=== PATIENT | female | born 1985 | race American Indian/Alaskan Native ===

== ENCOUNTER 2018-09-09 02:18 | Emergency (ER) | payer MEDICAID, OTHER ==
[2018-09-09 02:26] VITALS: BP 155/108
[2018-09-09] MEDS ORDERED: IBUPROFEN PO ONE (03:03)
--- NOTE | 2018-09-09 03:07 | Emergency Department Report ---
ED ENT HPI - General Chief complaint: Dental/Oral Stated complaint: TOOTHACHE Time Seen by Provider: 09/09/18 02:47 Source: patient Mode of arrival: Ambulatory Limitations: No Limitations - History of Present Illness Initial comments: 33-year-old -[place] female comes in complaining of a tooth pain that she's had for over a month. Patient states that she's been on amoxicillin in, and all which she reports is not helping with her pain. Patient denied any fever chills or nausea no vomiting. Patient is aware that she has a bad tooth in her mouth. Patient reports that she's had decreased and eating and drinking because of the tooth pain. Patient reports her next dental appointment is not until November. MD complaint: tooth pain -: month(s) (1) Location: tooth # (31) Severity scale (0 -10): 9 Improves with: none Worsens with: none Context- Dental: poor dental care Associated Symptoms: gum swelling, toothache. denies: fever, cough, pain with swallowing, sore throat - Related Data Home Medications Medication Instructions Recorded Confirmed Last Taken Multivitamins Tablet 1 tab PO QDAY 03/27/15 10/10/15 10/09/15 Ferrous Sulfate [Feosol 325 MG tab] 325 mg PO BID 08/13/15 10/10/15 08/11/15 Levothyroxine [Synthroid] 25 mcg PO QDAY 08/13/15 10/10/15 10/05/15 Acyclovir [Zovirax Tab] 400 mg PO DAILY 10/10/15 10/10/15 10/09/15 Valacyclovir HCl [valACYclovir] See Protocol PO QDAY 10/10/15 10/10/15 10/09/15 Previous Rx's Medication Instructions Recorded Last Taken Type Clindamycin [Clindamycin CAP] 300 mg PO Q8H #30 cap 09/09/18 Unknown Rx HYDROcodone/ACETAMINOPHEN [[place] 1 each PO Q6H PRN #12 tablet 09/09/18 Unknown Rx 7.5-325 Tablet] Ibuprofen [Motrin 600 MG tab] 600 mg PO Q8H PRN #30 tablet 09/09/18 Unknown Rx Allergies Allergy/AdvReac Type Severity Reaction Status Date / Time No Known Allergies Allergy Verified 03/03/15 20:21 ED Dental HPI - General Chief complaint: Dental/Oral Stated complaint: TOOTHACHE Time Seen by Provider: 09/09/18 02:47 Source: patient Mode of arrival: Ambulatory Limitations: No Limitations - Related Data Home Medications Medication Instructions Recorded Confirmed Last Taken Multivitamins Tablet 1 tab PO QDAY 03/27/15 10/10/15 10/09/15 Ferrous Sulfate [Feosol 325 MG tab] 325 mg PO BID 08/13/15 10/10/15 08/11/15 Levothyroxine [Synthroid] 25 mcg PO QDAY 08/13/15 10/10/15 10/05/15 Acyclovir [Zovirax Tab] 400 mg PO DAILY 10/10/15 10/10/15 10/09/15 Valacyclovir HCl [valACYclovir] See Protocol PO QDAY 10/10/15 10/10/15 10/09/15 Previous Rx's Medication Instructions Recorded Last Taken Type Clindamycin [Clindamycin CAP] 300 mg PO Q8H #30 cap 09/09/18 Unknown Rx HYDROcodone/ACETAMINOPHEN [[place] 1 each PO Q6H PRN #12 tablet 09/09/18 Unknown Rx 7.5-325 Tablet] Ibuprofen [Motrin 600 MG tab] 600 mg PO Q8H PRN #30 tablet 09/09/18 Unknown Rx Allergies Allergy/AdvReac Type Severity Reaction Status Date / Time No Known Allergies Allergy Verified 03/03/15 20:21 ED Review of Systems ROS: Stated complaint: TOOTHACHE Other details as noted in HPI Comment: All other systems reviewed and negative ENT: dental pain ED Past Medical Hx - Past Medical History Previous Medical History?: Yes Hx Hypertension: No Hx Congestive Heart Failure: No Hx Diabetes: No Hx Deep Vein Thrombosis: No Hx Renal Disease: No Hx Sickle Cell Disease: No Hx Seizures: No Hx Asthma: No Hx COPD: No Hx HIV: No Additional medical history: Vaginal delivery x 1. heart murmur - Surgical History Past Surgical History?: No - Social History Smoking Status: Current Every Day Smoker Substance Use Type: Alcohol - Medications Home Medications: Home Medications Medication Instructions Recorded Confirmed Last Taken Type Multivitamins Tablet 1 tab PO QDAY 03/27/15 10/10/15 10/09/15 History Ferrous Sulfate [Feosol 325 MG tab] 325 mg PO BID 08/13/15 10/10/15 08/11/15 History Levothyroxine [Synthroid] 25 mcg PO QDAY 08/13/15 10/10/15 10/05/15 History Acyclovir [Zovirax Tab] 400 mg PO DAILY 10/10/15 10/10/15 10/09/15 History Valacyclovir HCl [valACYclovir] See Protocol PO QDAY 10/10/15 10/10/15 10/09/15 History Clindamycin [Clindamycin CAP] 300 mg PO Q8H #30 cap 09/09/18 Unknown Rx HYDROcodone/ACETAMINOPHEN [[place] 1 each PO Q6H PRN #12 tablet 09/09/18 Unknown Rx 7.5-325 Tablet] Ibuprofen [Motrin 600 MG tab] 600 mg PO Q8H PRN #30 tablet 09/09/18 Unknown Rx ED Physical Exam - General Limitations: No Limitations General appearance: alert, in no apparent distress - Head Head exam: Present: atraumatic, normocephalic - Eye Eye exam: Present: normal appearance - ENT ENT exam: Present: mucous membranes moist - Expanded ENT Exam Expanded Teeth exam: Present: dental tenderness # (31), gingival enlargement ED Course Vital Signs 09/09/18 02:24 Temperature 98.2 F Pulse Rate 103 H Respiratory 16 Rate Blood Pressure 155/108 O2 Sat by Pulse 99 Oximetry ED Medical Decision Making - Medical Decision Making Patient has been evaluated by this provider and fast. Ibuprofen given for pain management. Discussed patient PLACED ON CLINDAMYCIN 300 MG BY MOUTH 3 TIMES A DAY FOR 10 DAYS. Discussed the patient that she needs to follow-up with a dentist sooner than November. Critical care attestation.: If time is entered above; I have spent that time in minutes in the direct care of this critically ill patient, excluding procedure time. ED Disposition Clinical Impression: Dental abscess Disposition: [id number] TO HOME OR SELFCARE Is pt being admited?: No Does the pt Need Aspirin: No Condition: Stable Instructions: Dental Abscess (ED) Additional Instructions: Please complete antibiotics as prescribed. Pain medication as needed. Is very important free to follow-up with the dentist. I have listed several below for your convenience. Prescriptions: Clindamycin [Clindamycin CAP] 300 mg PO Q8H #30 cap HYDROcodone/ACETAMINOPHEN [[place] 7.5-325 Tablet] 1 each PO Q6H PRN #12 tablet PRN Reason: Pain , Severe (7-10) Ibuprofen [Motrin 600 MG tab] 600 mg PO Q8H PRN #30 tablet PRN Reason: Pain , Severe (7-10) [facility] - [facility]5 Days [facility] [Outside] - 3-5 Days [facility] [Provider Group] - 3-5 Days Forms: Work/School Release Form(ED)
== END 2018-09-09 03:24 | disposition home or self-care (01) ==
LOC: ED 02:18
DX: K04.7 Periapical abscess without sinus (principal); F17.200 Nicotine dependence, unspecified, uncomplicated
CPT/HCPCS: 99282